=== PATIENT | male | born 1955 | race Caucasian/White ===

== ENCOUNTER 2022-11-24 02:14 | Emergency (ER) | payer MEDICARE ==
[~2022-11-24] VITALS: Ht 180.3 cm; Wt 90.7 kg
--- NOTE | 2022-11-24 02:45 | NUR ---
TO ER BED 9, BIBS C/O LLQ ABD PAIN SINCE LAST NIGHT HX DIVERTICULITIS AND FEELS SIMILAR +NAUSEA +CONSTIPATION 07/09 PAIN TOOK [employer] W/O RELIEF, AAOX4, BREATHING EVEN AND UNLABORED, CONNECTED TO MONITOR.
[2022-11-24] MEDS ORDERED: ONDANSETRON HCL/PF 4 MG/2 ML VIAL ONE (02:52)
[2022-11-24] MEDS ORDERED: MORPHINE SULFATE INJ 4 MG/ML DISP.SYRIN ONE ×2 (02:52→04:04)
--- NOTE | 2022-11-24 02:54 | NUR ---
SALINE LOCK ESTABLISHED, BLOOD DRAWN AND SENT TO LAB
[2022-11-24] MEDS ORDERED: MORPHINE SULFATE INJ 2 MG/ML DISP.SYRIN IV ONE ×2 (03:00→04:30)
[2022-11-24] MEDS ORDERED: IV NS 0.9% 1,000 ML BAG IV ONE (03:00)
[2022-11-24] MEDS ORDERED: ONDANSETRON HCL/PF 4 MG/2 ML VIAL IVP ONE (03:00)
[2022-11-24 03:26] LABS: BILIRUBIN,URINE NEGATIVE (NEGATIVE); COLOR,URINE YELLOW (YELLOW); LEUKOCYTE ESTERASE ,URINE NEGATIVE (NEGATIVE); NITRITE, URINE NEGATIVE (NEGATIVE); PH,URINE 5.5 (5.0-8.0); PROTEIN,URINE TRACE mg/dl (NEGATIVE); UGLUCOSE NEGATIVE (NEGATIVE); UROBILINOGEN,URINE 0.2 EU/dL (0.2)
[2022-11-24 03:27] LABS: BASOPHILS % (AUTO) 0.7 % (0.0-2.0); EOSINOPHILS % (AUTO) 1.8 % (0.0-6.0); HEMATOCRIT 47 % (39-51); HEMOGLOBIN 15.5 g/dL (13.5-17.5); LYMPHOCYTES % (AUTO) 27.4 % (20.0-44.0); MEAN CORPUSCULAR HGB CONC 33 g/dl (31.0-36.0); MEAN CORPUSCULAR VOLUME 82 fL (80-96); MONOCYTES # (AUTO) 0.8 K/uL (0.1-1.30); MONOCYTES % (AUTO) 11.7 % (2.0-12.0); NEUTROPHILS # (AUTO) 4.2 K/uL (1.8-8.9); NEUTROPHILS % (AUTO) 58.4 % (43.0-81.0); PLATELET COUNT (AUTO) 276 K/uL (150-450); RED BLOOD CELL COUNT(AUTO) 5.67 MIL/uL (4.5-6.0); WHITE BLOOD COUNT (AUTO) 7.2 K/uL (4.3-11.0)
[2022-11-24 03:28] LABS: CALCIUM, SERUM 9.7 mg/dL (8.5-10.1); CARBON DIOXIDE 30 mmol/L (21-32); CHLORIDE 102 mmol/L (98-107); CREATININE 1.6 mg/dL (0.6-1.3); GLUCOSE 111 mg/dL (74-106); SODIUM SERUM 139 mmol/L (136-145); UREA NITROGEN, BLOOD 20 mg/dL (7-18)
[2022-11-24 03:33] LABS: ALANINE AMINOTRANSFERASE 21 U/L (12-78); ALBUMIN 4.3 g/dL (3.4-5.0); ALKALINE PHOSPHATASE 85 U/L (46-116); ASPARTATE AMINOTRANSFERASE 13 U/L (15-37); BILIRUBIN,DIRECT 0.2 mg/dL (0.0-0.2); BILIRUBIN,TOTAL 0.6 mg/dL (0.2-1.0); LIPASE 112 U/L (73-393); TOTAL PROTEIN, SERUM 7.8 g/dL (6.4-8.2)
[2022-11-24 03:34] LABS: BACTERIA,URINE Rare /HPF (None Seen); SQUAMOUS EPITHELIAL CELL,UR Few /HPF (None Seen); WBC,URINE 0-2 /HPF (0-3)
--- NOTE | 2022-11-24 03:44 | NUR ---
CHERYLE (SON) [phone]. CALL FOR UPDATE AND LINK TRAINER
--- NOTE | 2022-11-24 03:46 | NUR ---
BROUGHT TO CT DEPT
--- NOTE | 2022-11-24 03:58 | NUR ---
CAME BACK FROM CT SCAN DEPT
--- NOTE | 2022-11-24 04:57 | NUR ---
sampler radioactive waste at bedside for xray
[2022-11-24] MEDS ORDERED: KETOROLAC TROMETHAMINE INJ 30 MG/ML VIAL ONE (05:39)
[2022-11-24] MEDS ORDERED: KETOROLAC TROMETHAMINE INJ 30 MG/ML VIAL IV ONE (06:00)
[2022-11-24] MEDS ORDERED: IBUP-1955 PO (06:27)
[2022-11-24] MEDS ORDERED: TAMS-12 PO (06:27)
[2022-11-24] MEDS ORDERED: ONDA4TAB5 PO (06:27)
[2022-11-24 06:41] VITALS: BP 165/80
--- NOTE | 2022-11-24 06:41 | NUR ---
Patient discharged to home in stable condition. Written and verbal after care instructions given. Patient verbalizes understanding of instruction.
== END 2022-11-24 06:52 | disposition home or self-care (01) ==
LOC: ER 02:24
DX: R31.9 Hematuria, unspecified (principal); R10.32 Left lower quadrant pain; Z87.442 Personal history of urinary calculi
CPT/HCPCS: 99285; 74176; 96374; 71045; 96375; 96361; 93005; 96376; 85025; 80048; 83690; 80076; 81001; 36415; 84484 ×2; 85730; J2270 ×2; J1885; J2405

== ENCOUNTER 2025-01-02 15:10 | Emergency (ER) | payer MEDICARE ==
[~2025-01-02] VITALS: Ht 180.3 cm; Wt 89.8 kg
[~2025-01-02 15:10] MED LIST: IBUP-1955 PO; ONDA4TAB5 PO; TAMS-12 PO
[2025-01-02] MEDS ORDERED: LIDOCAINE HCL/MPF 1% 30 ML VIAL IJ ONE (15:35)
[2025-01-02] MEDS ORDERED: TDAP [DIPH/PERTUSSIS/TET] 0.5 ML VIAL IM ONE (15:52)
[2025-01-02] MEDS: TDAP [DIPH/PERTUSSIS/TET] 0.5 ML VIAL IM ONE (15:56)
[2025-01-02 16:29] VITALS: BP 157/70; TEMP 97.9; O2SAT 99
== END 2025-01-02 16:30 | disposition home or self-care (01) ==
LOC: ER 15:14
DX: S61.211A Laceration without foreign body of left index finger without damage to nail, initial encounter (principal); Z87.442 Personal history of urinary calculi; Z87.19 Personal history of other diseases of the digestive system; Z60.2 Problems related to living alone; W26.8XXA Contact with other sharp object(s), not elsewhere classified, initial encounter; Y93.89 Activity, other specified; Y92.89 Other specified places as the place of occurrence of the external cause; Y99.8 Other external cause status
CPT/HCPCS: 99283; 12002; 90471; 90715; A6403; J3490

== ENCOUNTER 2025-01-11 12:39 | Emergency (ER) | payer MEDICARE ==
[~2025-01-11] VITALS: Ht 177.8 cm; Wt 83.9 kg
[2025-01-11 12:52] VITALS: BP 154/70; TEMP 98.5
[2025-01-11 13:23] VITALS: O2SAT 98
== END 2025-01-11 13:24 | disposition home or self-care (01) ==
LOC: ER 12:55
DX: S61.211D Laceration without foreign body of left index finger without damage to nail, subsequent encounter (principal); Z48.02 Encounter for removal of sutures; Z87.442 Personal history of urinary calculi; Z60.2 Problems related to living alone; X58.XXXD Exposure to other specified factors, subsequent encounter